=== PATIENT | male | born 1955 | race Caucasian/White ===

== ENCOUNTER 2017-07-27 15:42 | Inpatient (IN) | payer OTHER ==
[~2017-07-27] VITALS: Ht 185.4 cm; Wt 95.0 kg
[2017-07-27] MEDS ORDERED: ALBUTEROL/IPRATROPIUM 2.5MG/0.5MG, 3 ML NPPB SCH (16:00)
[2017-07-27] MEDS ORDERED: PLEASE ENTER ALLERGIES MC SCH ×2 (16:00)
[2017-07-27] MEDS ORDERED: SODIUM CHLORIDE FLUSH 10ML SYR IVF ONE ×2 (16:00→18:30)
[2017-07-27] MEDS ORDERED: PLEASE ENTER HEIGHT AND WEIGHT MC SCH (16:00)
[2017-07-27] MEDS ORDERED: ALBUTEROL/IPRATROPIUM 2.5MG/0.5MG, 3 ML ONE (16:14)
[2017-07-27 16:24] LABS: HEMATOCRIT 45.8 % (39.2-51.8); HEMOGLOBIN 15.5 g/dL (13.7-18.0); WHITE BLOOD COUNT 14.6 x10^3/uL (3.4-10)
[2017-07-27 16:31] LABS: BLOOD UREA NITROGEN 14 mg/dL (7-18)
[2017-07-27 16:44] LABS: IS PT STATUS REG ER OR PRE ER? YES
[2017-07-27] MEDS ORDERED: LISI-170 PO (17:34)
[2017-07-27] MEDS ORDERED: LABETALOL 5MG/ML, 20ML IVPush PRN (18:00)
[2017-07-27] MEDS ORDERED: ACETAMINOPHEN 325 MG TABLET PO PRN (18:00)
[2017-07-27 20:00] VITALS: BP 172/90
[2017-07-27] MEDS: methylPREDNISolone SOD SUCC 40 MG/ML IVPush SCH (20:58)
[2017-07-27] MEDS: DOXYCYCLINE 100 MG in DEXTROSE 5% 250 ML IVPB SCH (20:58)
[2017-07-27] MEDS: GUAIFENESIN ER 600 MG TABLET PO SCH (20:59)
[2017-07-27] MEDS: ENOXAPARIN 40 MG/0.4 ML SQ SCH (20:59)
[2017-07-27] MEDS: LORazepam 1MG TABLET PO PRN (21:28)
[2017-07-27 21:58] LABS: IS PT STATUS REG ER OR PRE ER? NO
[2017-07-27 22:37] LABS: RAPID INFLUENZA A Negative (Negative); RAPID INFLUENZA B Negative (Negative)
[2017-07-28] VITALS (9 sets, daily range): BP systolic 142–196; BP diastolic 72–94
[2017-07-28] MEDS: LORazepam 1MG TABLET PO PRN ×2 (02:05→21:17)
[2017-07-28] MEDS: methylPREDNISolone SOD SUCC 40 MG/ML IVPush SCH ×2 (03:52→08:28)
[2017-07-28 05:56] LABS: HEMATOCRIT 43.2 % (39.2-51.8); HEMOGLOBIN 14.6 g/dL (13.7-18.0); WHITE BLOOD COUNT 10.5 x10^3/uL (3.4-10)
[2017-07-28 06:05] LABS: ASPARTATE AMINO TRANSFERASE 21 U/L (15-37); BLOOD UREA NITROGEN 16 mg/dL (7-18)
[2017-07-28 06:07] LABS: IS PT STATUS REG ER OR PRE ER? NO
[2017-07-28] MEDS: LISINOPRIL 20 MG TABLET PO SCH (08:28)
[2017-07-28] MEDS: GUAIFENESIN ER 600 MG TABLET PO SCH ×3 (08:28→21:18)
[2017-07-28] MEDS: DOXYCYCLINE 100 MG in DEXTROSE 5% 250 ML IVPB SCH ×2 (09:23→21:17)
[2017-07-28] MEDS ORDERED: methylPREDNISolone SOD SUCC 125 MG/2 ML IVPush ONE (09:30)
[2017-07-28] MEDS: FLUTICASONE/VILANTEROL 100-25MCG/INH INH SCH (10:47)
[2017-07-28] MEDS: ALBUTEROL/IPRATROPIUM 2.5MG/0.5MG, 3 ML NPPB PRN ×2 (11:30→19:27)
[2017-07-28] MEDS: methylPREDNISolone SOD SUCC 125 MG/2 ML IVPush SCH ×2 (13:56→21:17)
[2017-07-28] MEDS: ENOXAPARIN 40 MG/0.4 ML SQ SCH (21:17)
[2017-07-28] MEDS ORDERED: TEMAZEPAM 15 MG CAPSULE PO PRN (23:00)
[2017-07-29 01:32] VITALS: BP 112/65
[2017-07-29] MEDS: methylPREDNISolone SOD SUCC 125 MG/2 ML IVPush SCH ×2 (03:47→09:53)
[2017-07-29 05:36] LABS: HEMATOCRIT 43.1 % (39.2-51.8); HEMOGLOBIN 14.4 g/dL (13.7-18.0); WHITE BLOOD COUNT 19.5 x10^3/uL (3.4-10)
[2017-07-29 05:51] LABS: BLOOD UREA NITROGEN 26 mg/dL (7-18)
[2017-07-29 07:23] LABS: DIFF TOTAL CELLS COUNTED 100 CELL DIFF
[2017-07-29 07:25] LABS: VERIFY COUNTS? YES
[2017-07-29 08:36] VITALS: BP 146/79
[2017-07-29] MEDS: FLUTICASONE/VILANTEROL 100-25MCG/INH INH SCH (09:47)
[2017-07-29] MEDS: GUAIFENESIN ER 600 MG TABLET PO SCH (09:54)
[2017-07-29] MEDS: LISINOPRIL 20 MG TABLET PO SCH (09:55)
[2017-07-29] MEDS: DOXYCYCLINE 100 MG in DEXTROSE 5% 250 ML IVPB SCH (10:06)
[2017-07-29] MEDS: ALBUTEROL/IPRATROPIUM 2.5MG/0.5MG, 3 ML NPPB PRN ×2 (11:11→15:22)
[2017-07-29] MEDS ORDERED: [UNRECOGNIZED DRUG - REMARK] MC SCH (12:45)
[2017-07-29] MEDS ORDERED: FLU VACC QS2017-18 (36MOS+) UP/PF 0.5 ML IM-VACC ONE (13:30)
== END 2017-07-29 16:39 | disposition left against medical advice (07) | DRG 189 ==
LOC: ED 19:13 → EDIP 19:33 → 4EST 20:16
PROVIDERS: ADMIT Internal Medicine; ATTEND Internal Medicine
DX: J96.01 Acute respiratory failure with hypoxia (principal); I11.0 Hypertensive heart disease with heart failure; I50.30 Unspecified diastolic (congestive) heart failure; J44.1 Chronic obstructive pulmonary disease with (acute) exacerbation; I25.2 Old myocardial infarction; Z86.73 Personal history of transient ischemic attack (TIA), and cerebral infarction without residual deficits; Z87.891 Personal history of nicotine dependence; Z91.19 Patient's noncompliance with other medical treatment and regimen; Z95.5 Presence of coronary angioplasty implant and graft; Z88.0 Allergy status to penicillin
CPT/HCPCS: 36415; 71010; 71020; 80048; 80053; 82040; 83605; 83880; 84145; 84484; 85025; 85610; 85730; 87040; 87400; 93005; 93306; 94640; 94667; J1650; J7060; J7620; J2920; J2930